=== PATIENT | male | born 1950 | race Caucasian/White ===

== ENCOUNTER 2021-04-29 14:02 | Emergency (ER) | payer MEDICARE, OTHER ==
[~2021-04-29] VITALS: Ht 180.3 cm; Wt 90.1 kg
--- NOTE | 2021-04-29 14:13 | NUR ---
patient to room from lobby
--- NOTE | 2021-04-29 14:15 | NUR ---
PT AMBULATORY TO ROOM FROM [facility], CHANGED INTO GOWN, MONITORS IN PLACE. PT C/O NOT BEING ABLE TO KNEEL DOWN ON BILAT KNEE. PT STATES HE FELL OFF A WALL 1 WEEK AGO, DENIES LOC, [place]. PT DID NOT SEEK MEDICAL HELP AT TIME OF FALL. IS HERE TO BE CHECKED FOR BILATERAL KNEES. ABRAISON TO R-SIDE OF HEAD FROM FALL WITH MILD BRUISING. CALL LIGHT WITHIN REACH. BED IN LOWEST POSITION, BED RAILS UP X2
[2021-04-29 14:20] VITALS: BP 144/77
--- NOTE | 2021-04-29 14:42 | NUR ---
PT TO XR
--- NOTE | 2021-04-29 14:55 | NUR ---
PT BACK TO ROOM FROM XR
--- NOTE | 2021-04-29 15:00 | NUR ---
Patient is resting comfortably in bed. Bed in lowest, rails engaged, call light on lap.Vital Signs within normal limits. WCTM.
--- NOTE | 2021-04-29 15:55 | NUR ---
ERP AT FOR RECHECK
--- NOTE | 2021-04-29 16:10 | NUR ---
Patient given discharge instructions and they have confirmed that they understand the instructions. Patient ambulatory with steady gait.
== END 2021-04-29 16:12 | disposition home or self-care (01) ==
LOC: ED 16:06
DX: S80.02XA Contusion of left knee, initial encounter (principal); S80.01XA Contusion of right knee, initial encounter; S00.83XA Contusion of other part of head, initial encounter; W18.30XA Fall on same level, unspecified, initial encounter; Y93.89 Activity, other specified; Y92.410 Unspecified street and highway as the place of occurrence of the external cause; Y99.8 Other external cause status
CPT/HCPCS: 99283